=== PATIENT | male | born 2000 | race Caucasian/White ===

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

== ENCOUNTER 2018-11-27 19:58 | Emergency (ER) | payer OTHER ==
[~2018-11-27] VITALS: Ht 160 cm; Wt 49.9 kg
[2018-11-27 20:01] VITALS: BP 147/84; Ht 160 cm; Wt 49.9 kg
[2018-11-27 20:37] LABS: AMPHETAMINE QUAL UR NONE DETECTED (See below)
== END 2018-11-27 21:01 | disposition home or self-care (01) ==
LOC: ED 19:58
DX: Z13.89 Encounter for screening for other disorder (principal)